=== PATIENT | female | born 2000 | race African-American/Black ===

== ENCOUNTER 2018-10-02 11:11 | Emergency (ER) | payer OTHER ==
[2018-10-02 11:32] VITALS: BP 120/68
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
[2018-10-02 15:05] LABS: APPEARANCE,URINE CLEAR; BILIRUBIN,URINE NEGATIVE (NEGATIVE); COLOR,URINE YELLOW; GLUCOSE, URINE NEGATIVE (NEGATIVE); KETONES,URINE NEGATIVE (NEGATIVE); LEUKOCYTE ESTERASE,URINE NEGATIVE (NEGATIVE); NITRITE,URINE NEGATIVE (NEGATIVE); PROTEIN,URINE NEGATIVE (NEGATIVE); URINE SPECIFIC GRAVITY 1.019; UROBILINOGEN,URINE NEGATIVE mg/dL (<2.0)
[2018-10-02 15:06] LABS: ABSOLUTE LYMPHOCYTES (AUTO) 1.2 10^3/uL (0.5-4.7); ABSOLUTE MONOCYTES (AUTO) 0.4 10^3/uL (0.1-1.4); ABSOLUTE NEUT (AUTO) 1.6 10^3/uL (1.7-8.2); HEMATOCRIT 40.9 % (36.0-47.0); HEMOGLOBIN 13.6 g/dL (12.0-15.5); LYMPHOCYTES % (AUTO) 36.6 % (13-45); MEAN CORPUSCULAR HEMOGLOBIN 29.6 pg (27.0-33.4); MEAN CORPUSCULAR HGB CONC 33.4 g/dL (32.0-36.0); MEAN CORPUSCULAR VOLUME 89 fl (80-97); MONOCYTES % (AUTO) 12.3 % (3-13); PLATELET COUNT 240 10^3/uL (150-450); RED BLOOD COUNT 4.61 10^6/uL (3.72-5.28); RED CELL DISTRIBUTION WIDTH 13.6 % (11.5-14.0); SEGMENTED NEUTROPHILS % (AUTO) 49.1 % (42-78); TOTAL CELLS COUNTED % (AUTO) 100 %; WHITE BLOOD COUNT 3.4 10^3/uL (4.0-10.5)
[2018-10-02 15:17] LABS: ANION GAP 10 (5-19); BLOOD UREA NITROGEN 7 mg/dL (7-20); CALCIUM 9.7 mg/dL (8.4-10.2); CARBON DIOXIDE 27 mmol/L (22-30); CHLORIDE 105 mmol/L (98-107); GLUCOSE 95 mg/dL (75-110); SODIUM 141.9 mmol/L (137-145)
[2018-10-02 16:30] LABS: CHLAM PCR NOT DETECTED (NOT DETECT)
--- NOTE | 2018-10-02 18:40 | ER Document Report ---
ED General - General Chief Complaint: Vaginal Pain Stated Complaint: VAGINAL AND ANAL PAIN/PELVIC PAIN Time Seen by Provider: 10/02/18 14:04 Primary Care Provider: JORJE ROJAS MD [ACTIVE STAFF] - Follow up in 3-5 days Notes: Patient is a 17-year-old female that presents to the emergency department for chief complaint of vaginal and anal pain. Patient states she had intercourse on Tuesday, with some anal penetration, and states that on started having some burning pain with urination in the perineum, and anal area she describes that she describes as a sharp pain and occasionally gets some cramping type pain in that region as well. She denies any abnormal vaginal bleeding or discharge. Denies having any nausea, vomiting, abdominal pain, diarrhea or pain with bowel movements. Past Medical History: Denies chronic medical conditions Past Surgical History: Denies surgical history Social History: Denies tobacco, alcohol or drug use. Family History: Reviewed and noncontributory for presenting illness Allergies: Reviewed, see documented allergy list. REVIEW OF SYSTEMS: Other than noted above, the 12 point review of systems was reviewed with the patient and were negative, all pertinent findings are included in the HPI. PHYSICAL EXAMINATION: Vital signs reviewed, nursing noted reviewed. GENERAL: Well-appearing, well-nourished and in no acute distress. HEAD: Atraumatic, normocephalic. EYES: Eyes appear normal, extraocular movements intact, sclera anicteric, conjunctiva are normal. ENT: nares patent, oropharynx clear without exudates. Moist mucous membranes. NECK: Normal range of motion, supple without lymphadenopathy LUNGS: Breath sounds clear to auscultation bilaterally and equal. No wheezes rales or rhonchi. HEART: Regular rate and rhythm without murmurs ABDOMEN: Soft, nontender, normoactive bowel sounds. No rebound, guarding, or rigidity. No masses appreciated. Pelvic Exam: With a electronic warfare officer present the exam was explained to the patient and patient agreed to proceed with exam. There is minor skin abrasion noted to the perineum, no anal fissure noted, no injury or evidence of trauma to the labia majora or minora. EXTREMITIES: Nontender, good range of motion, no pitting or edema. NEUROLOGICAL: No focal neurological deficits. Moves all extremities s pontaneously Motor and sensory grossly intact on exam. PSYCH: Normal mood, normal affect. SKIN: Warm, Dry, normal turgor, no rashes or lesions noted on exposed skin TRAVEL OUTSIDE OF THE [place] IN LAST 30 DAYS: No - Related Data Allergies/Adverse Reactions: No Known Allergies Allergy (Unverified 10/02/18 11:15) Past Medical History - General Last Menstrual Period: 08/23/18 - Social History Smoking Status: Never Smoker Chew tobacco use (# tins/day): No Frequency of alcohol use: None Drug Abuse: None Family History: Reviewed & Not Pertinent Patient has suicidal ideation: No Patient has homicidal ideation: No Renal/ Medical History: Denies: Hx Peritoneal Dialysis Physical Exam - Vital signs Vitals: Temp Pulse Resp BP Pulse Ox 99.3 F 62 16 120/68 99 10/02/18 11:30 10/02/18 11:30 10/02/18 11:30 10/02/18 11:30 10/02/18 11:30 Course - Re-evaluation Re-evalutation: Patient seen and examined vital signs reviewed. Laboratory data and/or imaging were ordered as appropriate for the patient's presenting symptoms and complaint, with consideration of any critical or life threatening conditions that may be associated with their obtained history and exam as noted above. Results were reviewed when available and demonstrated unremarkable blood work, negative UA, negative hCG, negative GC and chlamydia The patient was re-evaluated and was stable Evaluation was most consistent with perineal irritation, likely due to minor trauma during intercourse, advised prescription for Anusol, or use a triple antibiotic ointment, and otherwise follow-up with an BUSINESS SYSTEMS MANAGER or primary care. Results were discussed with the patient at this point, after careful consideration I feel that that patient can be discharged from the emergency department, the patient was educated treatments and reasons to return to the emergency department based on their presumed diagnosis as noted above, they were advised to followup with a primary care physician in 2-3 days. Patient was agreeable to plan of care. *Note is created using voice recognition software and may contain spelling, syntax or grammatical errors. Laboratory 10/02/18 10/02/18 10/02/18 14:40 14:40 14:40 WBC 3.4 L RBC 4.61 Hgb 13.6 Hct 40.9 MCV 89 MCH 29.6 MCHC 33.4 RDW 13.6 Plt Count 240 Seg Neutrophils % 49.1 Lymphocytes % 36.6 Monocytes % 12.3 Eosinophils % 1.0 Basophils % 1.0 Absolute Neutrophils 1.6 L Absolute Lymphocytes 1.2 Absolute Monocytes 0.4 Absolute Eosinophils 0.0 Absolute Basophils 0.0 Sodium 141.9 Potassium 4.0 Chloride 105 Carbon Dioxide 27 Anion Gap 10 BUN 7 Creatinine 0.72 Est GFR ( Amer) > 60 Est GFR (Non-Af Amer) > 60 Glucose 95 Calcium 9.7 Urine Color YELLOW Urine Appearance CLEAR Urine pH 6.0 Ur Specific Soso 1.019 Urine Protein NEGATIVE Urine Glucose (UA) NEGATIVE Urine Ketones NEGATIVE Urine Blood MODERATE H Urine Nitrite NEGATIVE Urine Bilirubin NEGATIVE Urine Urobilinogen NEGATIVE Ur Leukocyte Esterase NEGATIVE Urine WBC (Auto) 5 Urine RBC (Auto) 1 Urine Bacteria (Auto) TRACE Squamous Epi Cells Auto 1 Urine Mucus (Auto) RARE Urine Ascorbic Acid NEGATIVE Urine HCG, Qual NEGATIVE Chlamydia DNA (PCR) N.gonorrhoeae DNA (PCR) 10/02/18 14:40 WBC RBC Hgb Hct MCV MCH MCHC RDW Plt Count Seg Neutrophils % Lymphocytes % Monocytes % Eosinophils % Basophils % Absolute Neutrophils Absolute Lymphocytes Absolute Monocytes Absolute Eosinophils Absolute Basophils Sodium Potassium Chloride Carbon Dioxide Anion Gap BUN Creatinine Est GFR ( Amer) Est GFR (Non-Af Amer) Glucose Calcium Urine Color Urine Appearance Urine pH Ur Specific Soso Urine Protein Urine Glucose (UA) Urine Ketones Urine Blood Urine Nitrite Urine Bilirubin Urine Urobilinogen Ur Leukocyte Esterase Urine WBC (Auto) Urine RBC (Auto) Urine Bacteria (Auto) Squamous Epi Cells Auto Urine Mucus (Auto) Urine Ascorbic Acid Urine HCG, Qual Chlamydia DNA (PCR) NOT DETECTED N.gonorrhoeae DNA (PCR) NOT DETECTED - Vital Signs Vital signs: Temp Pulse Resp BP Pulse Ox 99.3 F 62 16 120/68 99 10/02/18 11:30 10/02/18 11:30 10/02/18 11:30 10/02/18 11:30 10/02/18 11:30 - Laboratory Result Diagrams: 10/02/18 14:40 10/02/18 14:40 Laboratory results interpreted by me: 10/02/18 10/02/18 14:40 14:40 WBC 3.4 L Absolute Neutrophils 1.6 L Urine Blood MODERATE H Discharge - Discharge Clinical Impression: Perineal irritation in female Condition: Stable Disposition: HOME, SELF-CARE Instructions: Pelvic Pain ([facility]) Additional Instructions: Please apply the ointment prescribed, twice daily for the next 3 to 5 days, pain should improve over time, he can also take [id number] Motrin/ibuprofen up to 600 mg every 8 hours to help with your pain. Prescriptions: Pramoxine HCl/Mineral Oil/Znox [Anusol Ointment] 1 applic RC BID #24 gm Forms: Return to Work Referrals: JORJE ROJAS MD [ACTIVE STAFF] - Follow up in 3-5 days
== END 2018-10-02 18:51 | disposition home or self-care (01) ==
LOC: ER 11:11
DX: R10.2 Pelvic and perineal pain (principal); K62.89 Other specified diseases of anus and rectum
CPT/HCPCS: 36415; 80048; 81001; 81025; 85025; 87491; 87591; 99283